=== PATIENT | female | born 1990 | race Caucasian/White ===

== ENCOUNTER 2019-02-03 00:20 | Outpatient (CLI) | payer OTHER, SELFPAY ==
[~2019-02-03] VITALS: Ht 142.2 cm; Wt 77.3 kg
[2019-02-03] MEDS ORDERED: PRENTAB9 PO (00:46)
[2019-02-03 00:49] VITALS: BP 111/52
[2019-02-03 01:53] LABS: BASO # 0.1 10^3/uL (0.0-0.2); BASO % 0.5 % (0.0-1.0); EOS # 0.3 10^3/uL (0.0-0.50); EOS % 1.6 % (0.0-3.0); HEMATOCRIT 32.5 % (36.0-47.0); LYMPH # 3.3 10^3/uL (1.5-6.5); LYMPH % 21.3 % (24.0-44.0); MEAN CORPUSCULAR HEMOGLOBIN 30.7 pg (27.0-33.0); MEAN CORPUSCULAR HGB CONC 33.8 g/dl (32.0-36.5); MEAN CORPUSCULAR VOLUME 90.8 fl (80.0-96.0); MONO # 0.7 10^3/uL (0.0-0.8); MONO % 4.7 % (0.0-5.0); NEUTROPHILS # 10.9 10^3/uL (1.8-7.7); NEUTROPHILS % 71.2 % (36.0-66.0); PLATELET COUNT, AUTOMATED 273 10^3/uL (150-450); RED BLOOD COUNT 3.58 10^6/uL (4.00-5.40); WHITE BLOOD COUNT 15.3 10^3/uL (4.0-10.0)
[2019-02-03 02:21] LABS: AMPHETAMINES URINE REFLEX NEGATIVE (NEGATIVE); BARBITURATES URINE REFLEX NEGATIVE (NEGATIVE); BENZODIAZEPINES URINE REFLEX NEGATIVE (NEGATIVE); CANNABINOIDS URINE REFLEX NEGATIVE (NEGATIVE); COCAINE METABOLITE URINE REFLE NEGATIVE (NEGATIVE); METHADONE URINE REFLEX NEGATIVE (NEGATIVE); OPIATES URINE REFLEX NEGATIVE (NEGATIVE); PHENCYCLIDINE URINE REFLEX NEGATIVE (NEGATIVE)
--- NOTE | 2019-02-03 02:54 | NUR ---
L&D Triage Note: S: 28yo with no PNC and unknown EDC presents with c/o contractions. Reports active movement. No vaginal bleeding or LOF PMHx: none PSHx: D&C x2 OB: , c/ IUGR Meds: PNV Allergy: meperodine Social Hx: no ETOH, drug or tobacco use during O: vss AF tracing appropriate for gestation gen: well appearing Chest: CTAB CVS: RRR abd: gravid, nttp cx: c/l/high panel obtained Anatomy u/s 25w6d A/P: 28yo at [id number] ,not active labor -poor care -reassuring status -provided with practice number and instructed to establish care Pallavi Lopez MD
--- NOTE | 2019-02-03 03:37 | REPVR ---
EXAM: US First Trimester, Transabdominal EXAM DATE/TIME: 02/03/2019 2:40 AM CLINICAL HISTORY: 28 years old, female; complicated by abdominal or pelvic pain; Generalized abdominal pain; Second trimester; Gestational age or lmp: 26wks; ; Patient HX: By lmp given the patient should be 36 wks , ; additional info: ? ? Gestation approx. 33 wks, non reactive nst, growth and bpp TECHNIQUE: Imaging protocol: Real-time transabdominal obstetrical ultrasound of the maternal pelvis and a first trimester , less than 14 weeks 0 days, with image documentation. COMPARISON: No relevant prior studies available. FINDINGS: GESTATION: Gestation: Single intrauterine fetus. Heart rate: heartbeat of 153 beats per minute. Presentation: Cephalic presentation. Placenta: The placenta is fundal. Amniotic fluid: MELANIE 10.6 cm. Abdomen: The intracranial structures, face, spine, stomach, kidneys, urinary bladder, cord, cord insertion, 4 chamber heart, LVOT and visualized extremities are normal. BIOMETRY: Estimated gestational age: The composite gestational age by ultrasound is 25 weeks 6 days. Estimated due date: The EDC is 05/13/2019. Estimated weight: The estimated weight is 842 grams. Biparietal diameter: The BPD measures 6.6 cm suggesting an age of 26 weeks 6 days. Head circumference: The head circumference measures 24.2 cm suggesting an age of 26 weeks 2 days. Abdominal circumference: The abdominal circumference measures 21.2 cm suggesting an age of 25 weeks 5 days. Femur length: The femur length measures 4.6 cm suggesting an age of 25 weeks 2 days. MATERNAL: Uterus: Unremarkable. Cervix: Closed cervix measuring 3.4 cm. Intraperitoneal: No intraperitoneal free fluid. IMPRESSION: Single live intrauterine fetus in cephalic presentation with a composite age of 25 weeks 6 days. EDC is 05/13/2019. Electronically signed by: Jose Lee On 02/03/2019 03:36:41 AM
[2019-02-03 14:21] LABS: HEPATITIS C VIRUS ABY INDEX < 0.0 INDEX (<0.8); HIV 1&2 SCREEN CENTAUR NEGATIVE (NEGATIVE); RUBELLA IgG QUALITATIVE IMMUNE (IMMUNE)
== END 2019-02-03 02:45 | disposition home or self-care (01) ==
LOC: EDBD 00:20 → M LDO 00:20
PROVIDERS: ATTEND Obstetrics & Gynecology
DX: O26.892 Other specified pregnancy related conditions, second trimester (principal); O47.02 False labor before 37 completed weeks of gestation, second trimester; Z3A.25 25 weeks gestation of pregnancy
CPT/HCPCS: 59025; 76811; 76819; 80307; 85025; 86762; 86780; 86803; 87340; 87389; G0378; G0463

== ENCOUNTER 2019-04-17 22:41 | Outpatient (CLI) | payer OTHER, SELFPAY ==
[~2019-04-17 22:41] MED LIST: PRENTAB9 PO
[2019-04-17 22:42] VITALS: BP 99/61
[2019-04-17] MEDS ORDERED: ACETAMINOPHEN 500 MG TAB PO ONE (23:00)
== END 2019-04-17 23:27 | disposition home or self-care (01) ==
LOC: M LDO 22:41
PROVIDERS: ATTEND Specialist
DX: O26.893 Other specified pregnancy related conditions, third trimester (principal); R10.30 Lower abdominal pain, unspecified; O47.03 False labor before 37 completed weeks of gestation, third trimester; Z3A.36 36 weeks gestation of pregnancy
CPT/HCPCS: 59025; G0378; G0463

== ENCOUNTER 2019-05-15 10:55 | Inpatient (IN) | payer OTHER, SELFPAY ==
[2019-05-15] VITALS (43 sets, daily range): BP systolic 98–188; BP diastolic 55–97
[~2019-05-15] VITALS: Ht 142.2 cm; Wt 76.0 kg
[2019-05-15] MEDS ORDERED: PENICILLIN G POTASSIUM IV 5 MU in D5W MINI-BAG PLUS 100 ML IV STA (11:27)
--- NOTE | 2019-05-15 11:56 | HPE ---
DATE OF ADMISSION: 05/15/2019 CHIEF COMPLAINT: Labor. HISTORY OF PRESENT ILLNESS: Carmen is a 28-year-old 4, para 1-0-2-1 at 40.2 weeks gestation by a second trimester ultrasound done on 02/03/2019 with an estimated date of delivery of 05/13/2019. She presents to labor and delivery complaining of contractions since 6:30 p.m. and rupture of membranes at 10:30 a.m. this morning, which was clear. Her contractions started at about 5 to 6 minutes and now have moved closer together about every 2 minutes. She is feeling baby move and denies any bleeding or other discharge. Her care is complicated by lack of care. She has no laboratories. An obstetrical ultrasound done on 02/03/2019 showed a single intrauterine gestation with normal anatomy and a fundal placenta. MELANIE at the time was 10.6 cm. PAST OBSTETRICAL HISTORY: 1. In 2005 she had a miscarriage at 7 weeks. 2. In 2015 she had a miscarriage and does not know what estimated gestational age that was at. 3. In June 2017 she gave to a male fetus at 39 weeks gestation via normal spontaneous vaginal delivery. Induction of labor for small for gestational age, her baby was 4 pounds 9 ounces. PAST MEDICAL HISTORY: 1. Asthma as a child. 2. No care. MEDICATIONS: vitamins. PAST SURGICAL HISTORY: Dilatation and curettage in 2015. ALLERGIES: DEMEROL. SOCIAL HISTORY: The patient is . She smokes five cigarettes per day. She denies any alcohol or drug use. PHYSICAL EXAMINATION: VITAL SIGNS: Temperature 98.0, pulse 87 and regular, respiratory rate 18 and unlabored, blood pressure 128/80. ABDOMEN: Gravid, Valentin's maneuver shows baby is vertex with an estimated weight of about 3500 grams. STERILE VAGINAL EXAM: 3 cm dilated, 75% effaced, -3 station, Nitrazine positive. MONITOR: 135 beats per minute, moderate variability, accelerations, no decelerations. Category 1 tracing. Tocometer: Contractions every 2 minutes. ASSESSMENT AND PLAN: This is a 28-year-old 4, P 1-0-2-1 at 40.2 weeks estimated gestational age in active labor. She has had no care. Her laboratories have been ordered. She is Group B streptococcus (GBS) unknown so we will give her penicillin. She does wish to have an epidural. status is reassuring. Anticipate spontaneous vaginal delivery. GME ATTESTATION GME ATTESTATION My faculty preceptor for this patient encounter was physically present during the encounter and was fully available. All aspects of the patient interview, examination, medical decision making process, and medical care plan development were reviewed and approved by the faculty preceptor. The faculty preceptor is aware and concurs with the plan as stated in the body of this note and will attest to such by his/her cosignature. RON
[2019-05-15 12:02] LABS: HEMATOCRIT 34.1 % (36.0-47.0); HEMOGLOBIN 11.6 g/dl (12.0-15.5); MEAN CORPUSCULAR HEMOGLOBIN 30.7 pg (27.0-33.0); MEAN CORPUSCULAR VOLUME 90.2 fl (80.0-96.0); PLATELET COUNT, AUTOMATED 322 10^3/uL (150-450); RED BLOOD COUNT 3.78 10^6/uL (4.00-5.40); WHITE BLOOD COUNT 17.6 10^3/uL (4.0-10.0)
[2019-05-15] MEDS ORDERED: LR 500 ML IV ONE (12:15)
[2019-05-15 12:28] LABS: ALT/SGPT 11 U/L (12-78); BILIRUBIN,TOTAL 0.2 MG/DL (0.2-1.0); CREATININE FOR GFR 0.54 MG/DL (0.55-1.30); GLOMERULAR FILTRATION RATE > 60.0 (>60); LDH LACTATE DEHYDROGENASE 165 U/L (84-246); URIC ACID 6.1 MG/DL (2.6-6.0)
--- NOTE | 2019-05-15 14:37 | IPNPDOC ---
Text Note Date of Service The patient was seen on 05/15/19. NOTE Subjective: Feeling contractions, not very uncomfortable, does want epidural, feeling baby move Objective: Vitals: stable Sterile vaginal exam: /-3, no change heart rate: 135 bpm, moderate variability, accelerations, no decelerations, category 1 tracing [place]: Contractions every 3-11 minutes Assessment/Plan: 28-year-old at 40.2 EGA in labor, no cervical change after 3.5 hours - status reassuring -Augmentation with Pitocin -Anticipate vaginal delivery VS,Fishbone, I+O VS, Fishbone, I+O Laboratory Tests 05/15/19 11:44 Red Blood Count 3.78 L, Mean Corpuscular Volume 90.2, Mean Corpuscular Hemoglobin 30.7, Mean Corpuscular Hemoglobin Concent 34.0, Red Cell Distribution Width 14.3, Aspartate Amino Transf (AST/SGOT) 15, Alanine Aminotransferase (ALT/SGPT) 11 L, Lactate Dehydrogenase 165, Total Bilirubin 0.2, Uric Acid 6.1 H Vital Signs Date Time Temp Pulse Resp B/P (MAP) Pulse Ox O2 Delivery O2 Flow Rate FiO2 05/15/19 12:46 85 18 131/72 (91) 05/15/19 11:06 98.0 GME ATTESTATION GME ATTESTATION My faculty preceptor for this patient encounter was physically present during the encounter and was fully available. All aspects of the patient interview, examination, medical decision making process, and medical care plan development were reviewed and approved by the faculty preceptor. The faculty preceptor is aware and concurs with the plan as stated in the body of this note and will attest to such by his/her cosignature. JOSE LUIS MARTIN DO May 15, 2019 14:37
[2019-05-15] MEDS ORDERED: LR 1,000 ML IV SCH (14:45)
[2019-05-15] MEDS ORDERED: OXYTOCIN DRIP 30 UNITS in APPROPRIATE DILUENT 1 EA IV SCH (14:45)
[2019-05-15 14:53] LABS: AMPHETAMINES URINE REFLEX NEGATIVE (NEGATIVE); BARBITURATES URINE REFLEX NEGATIVE (NEGATIVE); BENZODIAZEPINES URINE REFLEX NEGATIVE (NEGATIVE); CANNABINOIDS URINE REFLEX NEGATIVE (NEGATIVE); COCAINE METABOLITE URINE REFLE NEGATIVE (NEGATIVE); METHADONE URINE REFLEX NEGATIVE (NEGATIVE); OPIATES URINE REFLEX NEGATIVE (NEGATIVE); PHENCYCLIDINE URINE REFLEX NEGATIVE (NEGATIVE)
[2019-05-15] MEDS ORDERED: PENICILLIN G POTASSIUM IV 2.5 MU in APPROPRIATE DILUENT 1 EA IV SCH (15:30)
[2019-05-15] MEDS: PENICILLIN G POTASSIUM IV 2.5 MU in APPROPRIATE DILUENT 1 EA IV SCH ×2 (15:59→20:17)
[2019-05-15] MEDS ORDERED: FENTANYL 2MCG/ML ROPIVACAINE 0.2% IN 0.9% NACL 100ML IVBAG As Ordered ONE (16:00)
[2019-05-15 16:09] LABS: CHLAMYDIA DNA AMPLIFICATION POSITIVE (NEGATIVE); GC DNA AMPLIFICATION NEGATIVE (NEGATIVE)
[2019-05-15] MEDS ORDERED: AZITHROMYCIN 250 MG TAB PO ONE (16:45)
--- NOTE | 2019-05-15 16:47 | IPNPDOC ---
Text Note Date of Service The patient was seen on 05/15/19. NOTE Subjective: Patient is getting epidural right now Objective: heart rate: 135 bpm, moderate variability, axilla is no decelerations, category 1 tracing [place]: Contractions every 3-5 minutes Chlamydia trachomatis came back positive Assessment/plan: 28-year-old at 40.2 EGA, in labor -Chlamydia positive, will treat with azithromycin 2 g by mouth, will notify NICU - status reassuring -Patient more comfortable now status post epidural -Anticipate normal spontaneous vaginal delivery VS,Fishbone, I+O VS, Fishbone, I+O Laboratory Tests 05/15/19 11:44 Red Blood Count 3.78 L, Mean Corpuscular Volume 90.2, Mean Corpuscular Hemoglobin 30.7, Mean Corpuscular Hemoglobin Concent 34.0, Red Cell Distribution Width 14.3, Aspartate Amino Transf (AST/SGOT) 15, Alanine Aminotransferase (ALT/SGPT) 11 L, Lactate Dehydrogenase 165, Total Bilirubin 0.2, Uric Acid 6.1 H Vital Signs Date Time Temp Pulse Resp B/P (MAP) Pulse Ox O2 Delivery O2 Flow Rate FiO2 05/15/19 14:56 98.1 83 18 112/69 (83) GME ATTESTATION GME ATTESTATION My faculty preceptor for this patient encounter was physically present during the encounter and was fully available. All aspects of the patient interview, examination, medical decision making process, and medical care plan development were reviewed and approved by the faculty preceptor. The faculty preceptor is aware and concurs with the plan as stated in the body of this note and will attest to such by his/her cosignature. JOSE LUIS MARTIN DO May 15, 2019 16:47
[2019-05-15] MEDS ORDERED: EPIDURAL COMMENT XX SCH (17:00)
[2019-05-15] MEDS ORDERED: FENTANYL/ROPIVACAINE/NACL BAG 100 ML EPIDURAL SCH (17:00)
[2019-05-15] MEDS ORDERED: EPIDURAL/PCA KEYS XX PRN (17:00)
[2019-05-15] MEDS ORDERED: NALOXONE INJ 0.4 MG/1 ML VIAL (J2310) IV PRN (17:00)
[2019-05-15] MEDS ORDERED: REFRIGERATOR IV KEYS XX PRN (17:00)
[2019-05-15] MEDS ORDERED: ePHEDrine SULFATE 25 MG/5 ML(5MG/ML) SYRINGE IV PRN (17:00)
[2019-05-15] MEDS ORDERED: ONDANSETRON 4MG/2ML VIAL (J2405) IV PRN (17:00)
[2019-05-15] MEDS ORDERED: diphenhydrAMINE INJ 50MG/ML VIAL (J1200) IV PRN (17:00)
[2019-05-15] MEDS ORDERED: ACETAMINOPHEN TAB 650MG DOSE (2X325MG) PO PRN (18:30)
[2019-05-16] VITALS (15 sets, daily range): BP systolic 112–190; BP diastolic 57–71
[2019-05-16] MEDS: PENICILLIN G POTASSIUM IV 2.5 MU in APPROPRIATE DILUENT 1 EA IV SCH (01:49)
[2019-05-16] MEDS ORDERED: ACETAMINOPHEN 500 MG TAB PO PRN (03:00)
[2019-05-16] MEDS ORDERED: MOM 30ML SUSPENSION UDC PO PRN (03:00)
[2019-05-16] MEDS ORDERED: MEASLES,MUMPS,RUBELLA VACCINE INJ (MMR-II) (90707) SC SCH (03:00)
[2019-05-16] MEDS ORDERED: OXYTOCIN DRIP 30 UNITS in APPROPRIATE DILUENT 1 EA IV SCH (03:00)
[2019-05-16] MEDS ORDERED: METHYLERGONOVINE MALEATE 0.2 MG TAB PO PRN (03:00)
[2019-05-16] MEDS ORDERED: ANUSOL HC CREAM 30GM TOP PRN (03:00)
[2019-05-16] MEDS ORDERED: ACETAMINOPHEN TAB 650MG DOSE (2X325MG) PO PRN (03:00)
[2019-05-16] MEDS ORDERED: DOCUSATE SODIUM 100 MG CAP PO PRN (03:00)
[2019-05-16] MEDS ORDERED: DIBUCAINE 1% OINTMENT 30GM TOP PRN (03:00)
[2019-05-16] MEDS ORDERED: RHOGAM 300 MCG (1500 IU) INJ (J2790) IM SCH (03:00)
[2019-05-16] MEDS ORDERED: IBUPROFEN 600 MG TAB PO PRN (03:00)
[2019-05-16] MEDS: SLF 3 ML SYR IV SCH ×2 (06:00→14:41)
[2019-05-16] MEDS: PRENATAL VITAMINS CHEWABLE TABLET PO SCH (08:47)
[2019-05-16] MEDS: IBUPROFEN 800 MG TAB PO PRN (08:48)
[2019-05-16] MEDS ORDERED: SLF 3 ML SYR IV PRN (09:00)
[2019-05-16 09:33] LABS: RUBELLA IgG QUALITATIVE IMMUNE (IMMUNE)
[2019-05-16] MEDS: NICOTINE 21MG/24HR 1 EA TRANSDERMAL TD SCH (12:20)
--- NOTE | 2019-05-16 12:43 | DN ---
DATE: 05/16/2019 TIME OF : 0242 hours GENDER: Male. SCORES: 9 and 9. WEIGHT: 6 pounds 7 ounces or 2920 grams. LACERATION: Left labial. ANESTHESIA: Epidural. ESTIMATED BLOOD LOSS: 300 mL. COUNTS: Five laparotomy sponges accounted for prior to and after delivery, one sharp removed from the delivery field. DELIVERY NOTE On May 16, 2019 at 0242 hours, Ms. Oakes, a 28-year-old had a delivery of a live born male , scores 9 and 9, weight was 2920 grams or 6 pounds 7 ounces. Head was delivered OA over intact perineum followed by delivery of shoulders and corpus. The infant was handed to the mother with good cry. Cord was clamped times two and was cut by the father of baby under my direction. Placenta was then drained and delivered grossly intact. A premixed bag of 500 mL of normal saline with 30 units of Pitocin was bolused along with uterine massage until the uterus was firm. On reinspection, there was a left labial laceration, which was repaired with 3-0 Vicryl Rapide. On reinspection, cervix, vagina and perineum were grossly intact and hemostatic. Mother and baby recovering in stable condition.
[2019-05-17 05:26] VITALS: BP 105/58
[2019-05-17] MEDS: PRENATAL VITAMINS CHEWABLE TABLET PO SCH (08:53)
[2019-05-17] MEDS: NICOTINE 21MG/24HR 1 EA TRANSDERMAL TD SCH (08:54)
[2019-05-17] MEDS ORDERED: ADACEL/BOOSTRIX VACCINE (DIPHTH/PERTUSS/ACELL/TETANUS)0.5ML SYR (90715) IM ONE (09:00)
[2019-05-17] MEDS ORDERED: INFLUENZA QUADRIVALENT PF VACCINE 0.5ML SYRINGE (90686) IM ONE (09:00)
[2019-05-17] MEDS: IBUPROFEN 800 MG TAB PO PRN (09:03)
== END 2019-05-17 11:20 | disposition home or self-care (01) | DRG 560 ==
LOC: M LDO 10:55 → M LDI 11:16 → M OBS 05-16 08:40
PROVIDERS: ADMIT Obstetrics & Gynecology; ATTEND Obstetrics & Gynecology
PROC: 10E0XZZ Delivery of Products of Conception, External Approach (ICD-10-PCS; principal; 2019-05-16)
PROC: 0HQ9XZZ Repair Perineum Skin, External Approach (ICD-10-PCS; 2019-05-16)
DX: O48.0 Post-term pregnancy (principal); Z3A.40 40 weeks gestation of pregnancy; Z37.0 Single live birth; O99.334 Smoking (tobacco) complicating childbirth; F17.210 Nicotine dependence, cigarettes, uncomplicated; O98.32 Other infections with a predominantly sexual mode of transmission complicating childbirth; A74.89 Other chlamydial diseases; O70.0 First degree perineal laceration during delivery

== ENCOUNTER → 2020-07-30 | Outpatient (CLI) | payer OTHER, SELFPAY ==
[2020-07-30 13:49] LABS: HEMATOCRIT 40.5 % (36.0-47.0); MEAN CORPUSCULAR HGB CONC 32.1 g/dl (32.0-36.5); MEAN CORPUSCULAR VOLUME 90.4 fl (80.0-96.0); PLATELET COUNT, AUTOMATED 310 10^3/uL (150-450); RED BLOOD COUNT 4.48 10^6/uL (4.00-5.40); WHITE BLOOD COUNT 13.1 10^3/uL (4.0-10.0)
--- NOTE | 2020-07-30 14:04 | ECGEPIP ---
[facility] Test Date: 2020-07-30 Pat Name: ARNULFO GILBERT Department: Room: - Gender: Female [employer]inist: ASH : 1990 Requested By: Mariela Verma FPMHNP-BC Order Number: [id number] Reading MD: Linda Joseph Measurements Intervals [place] Rate: 64 P: 29 VT: 161 QRS: 6 QRSD: 83 T: 5 QT: 362 QTc: 374 Interpretive Statements SINUS RHYTHM WITH POSSIBLY INCREASED VAGAL TONE (HR SLOWING) PRWP NO PRIOR Electronically Signed on 07-30-2020 14:04:07 EST by Linda Joseph
[2020-07-30 14:34] LABS: HEMOGLOBIN A1c 5.4 %
[2020-07-30 14:46] LABS: ALBUMIN 3.4 GM/DL (3.2-5.2); ALT/SGPT 42 U/L (12-78); BILIRUBIN,TOTAL 0.1 MG/DL (0.2-1.0); BLOOD UREA NITROGEN 8 MG/DL (7-18); CALCIUM LEVEL 8.7 MG/DL (8.5-10.1); CARBON DIOXIDE LEVEL 26 MEQ/L (21-32); CHLORIDE LEVEL 110 MEQ/L (98-107); CHOLESTEROL LEVEL 197 MG/DL (<200); CHOLESTEROL RISK RATIO 6.566 (<5); CREATININE FOR GFR 0.57 MG/DL (0.55-1.30); FREE THYROXINE INDEX 2.8 % (1.3-4.8); GLOMERULAR FILTRATION RATE > 60.0 (>60); GLUCOSE, FASTING 79 MG/DL (70-100); HDL CHOLESTEROL 30 MG/DL (>40); LDL CHOLESTEROL 128 MG/DL (<100); NON-HDL-C 167 MG/DL; POTASSIUM SERUM 4.1 MEQ/L (3.5-5.1); SODIUM LEVEL 141 MEQ/L (136-145); T UPTAKE 30 % (30-39); THYROID STIMULATING HORMONE 0.989 uIU/ML (0.358-3.740); THYROXINE (T4) 9.2 UG/DL (4.5-12.0); TOTAL PROTEIN 6.6 GM/DL (6.4-8.2); TRIGLYCERIDES LEVEL 195 MG/DL (<150)
[2020-07-30 14:50] LABS: TOTAL 25(OH) VITAMIN D 9.9 NG/ML (30.0-100.0)
== END ==
LOC: M LAB 11:11
PROVIDERS: ATTEND Nurse Practitioner Psychiatric/Mental Health
DX: F33.9 Major depressive disorder, recurrent, unspecified (principal)

== ENCOUNTER 2020-08-04 16:22 | Emergency (ER) | payer OTHER ==
[~2020-08-04] VITALS: Ht 142.2 cm; Wt 83.9 kg
[2020-08-04] MEDS ORDERED: NS 1,000 ML IV ONE (17:30)
[2020-08-04] MEDS ORDERED: ONDANSETRON 4MG/2ML VIAL IV ONE (17:30)
[2020-08-04 18:23] LABS: BASO # 0.1 10^3/uL (0.0-0.2); BASO % 0.3 % (0.0-1.0); EOS # 0.1 10^3/uL (0.0-0.5); EOS % 0.5 % (0.0-3.0); HEMATOCRIT 42.9 % (36.0-47.0); HEMOGLOBIN 14.1 g/dl (12.0-15.5); LYMPH # 1.8 10^3/uL (1.5-5.0); LYMPH % 8.2 % (24.0-44.0); MEAN CORPUSCULAR HEMOGLOBIN 28.8 pg (27.0-33.0); MEAN CORPUSCULAR HGB CONC 32.9 g/dl (32.0-36.5); MEAN CORPUSCULAR VOLUME 87.7 fl (80.0-96.0); MONO # 0.5 10^3/uL (0.0-0.8); MONO % 2.4 % (0.0-5.0); NEUTROPHILS # 19.2 10^3/uL (1.5-8.5); NEUTROPHILS % 87.9 % (36.0-66.0); PLATELET COUNT, AUTOMATED 386 10^3/uL (150-450); RED BLOOD COUNT 4.89 10^6/uL (4.00-5.40); WHITE BLOOD COUNT 21.9 10^3/uL (4.0-10.0)
[2020-08-04 18:47] LABS: ALBUMIN 3.9 GM/DL (3.2-5.2); ALT/SGPT 41 U/L (12-78); AMYLASE 43 U/L (25-115); BILIRUBIN,DIRECT < 0.1 MG/DL (0.0-0.2); BILIRUBIN,TOTAL 0.4 MG/DL (0.2-1.0); BLOOD UREA NITROGEN 8 MG/DL (7-18); CARBON DIOXIDE LEVEL 21 MEQ/L (21-32); CHLORIDE LEVEL 110 MEQ/L (98-107); CREATININE FOR GFR 0.62 MG/DL (0.55-1.30); GLOMERULAR FILTRATION RATE > 60.0 (>60); GLUCOSE, FASTING 100 MG/DL (70-100); LIPASE 97 U/L (73-393); POTASSIUM SERUM 4.2 MEQ/L (3.5-5.1); SODIUM LEVEL 138 MEQ/L (136-145); TOTAL PROTEIN 7.7 GM/DL (6.4-8.2)
[2020-08-04 18:53] LABS: HCG, SERUM QUALITATIVE POSITIVE (NEGATIVE)
[2020-08-04 19:28] LABS: HCG, SERUM QUANTITATIVE 22459 MIU/ML
[2020-08-04 19:29] LABS: AMPHETAMINES LEVEL URINE NEGATIVE (NEGATIVE); BARBITURATES URINE NEGATIVE (NEGATIVE); BENZODIAZEPINES URINE NEGATIVE (NEGATIVE); CANNABINOIDS URINE POSITIVE (NEGATIVE); COCAINE METABOLITE URINE NEGATIVE (NEGATIVE); METHADONE URINE NEGATIVE (NEGATIVE); OPIATES URINE NEGATIVE (NEGATIVE); PHENCYCLIDINE URINE NEGATIVE (NEGATIVE)
--- NOTE | 2020-08-04 20:57 | REPVR ---
PROCEDURE INFORMATION: Exam: US First Trimester, Transabdominal Exam date and time: 08/04/2020 8:49 PM Age: 30 years old Clinical indication: Lmp or gestational age (in weeks): Unk; Antepartum complications; Other: Vomiting; ; Additional info: N/v, positive hcg TECHNIQUE: Imaging protocol: Real-time transabdominal obstetrical ultrasound of the maternal pelvis and a first trimester , less than 14 weeks 0 days, with image documentation. COMPARISON: No relevant prior studies available. FINDINGS: Gestation: Single gestational sac demonstrated within the uterine fundus. Single pole demonstrated within the gestational sac with a crown-rump length of 6.7 mm. Embryonic/ heart rate: heart rate is 108 bpm. Placenta: Unremarkable. No subchorionic bleed. Amniotic fluid: Amniotic fluid is normal for gestational age. BIOMETRY: Gestational age (AUA): Gestational age based on crown-rump length is 6 weeks 4 days in this patient with unknown menstrual dates. MATERNAL: Uterus: Unremarkable. Cervix: Unremarkable. Right adnexa: Unremarkable. Left adnexa: Unremarkable. Intraperitoneal space: No intraperitoneal free fluid. IMPRESSION: Gestational age based on crown-rump length is 6 weeks 4 days in this patient with unknown menstrual dates. heart rate is in the low range. No other abnormalities demonstrated. Continued interval follow-up is suggested as clinically directed. Electronically signed by: Joe Eagle On 08/04/2020 20:57:11 PM
[2020-08-04] MEDS ORDERED: METOCLOPRAMIDE INJ 10MG/2ML VIAL (J2765 PER 1) IV ONE (21:45)
[2020-08-04] MEDS ORDERED: REGL10TA6 PO (22:15)
[2020-08-04] MEDS ORDERED: KEFL500C17 PO (22:15)
[2020-08-04 22:46] VITALS: BP 120/69
== END 2020-08-04 23:00 | disposition home or self-care (01) ==
LOC: M ED 16:22
DX: O99.321 Drug use complicating pregnancy, first trimester (principal); F12.188 Cannabis abuse with other cannabis-induced disorder; O99.111 Other diseases of the blood and blood-forming organs and certain disorders involving the immune mechanism complicating pregnancy, first trimester; D72.829 Elevated white blood cell count, unspecified; O23.91 Unspecified genitourinary tract infection in pregnancy, first trimester; Z3A.01 Less than 8 weeks gestation of pregnancy
CPT/HCPCS: 76801; 80048; 80076; 80307; 81001; 82150; 83690; 84702; 84703; 85025; 96361; 96374; 96375; 99284; J2405; J2765

== ENCOUNTER 2021-03-02 02:29 | Emergency (ER) | payer OTHER ==
[~2021-03-02] VITALS: Ht 137.2 cm; Wt 80.0 kg
[~2021-03-02 02:29] MED LIST changes: +KEFL500C17 PO; +REGL10TA6 PO
[2021-03-02] MEDS ORDERED: ZOLO100T PO (02:53)
[2021-03-02] MEDS ORDERED: NS 1,000 ML IV ONE (03:05)
[2021-03-02] MEDS ORDERED: ONDANSETRON 4MG/2ML VIAL IV ONE (04:10)
[2021-03-02 04:32] LABS: BASO # 0.1 10^3/uL (0.0-0.2); BASO % 0.5 % (0.0-1.0); EOS % 0.1 % (0.0-3.0); HEMATOCRIT 48.7 % (36.0-47.0); HEMOGLOBIN 16.1 g/dl (12.0-15.5); LYMPH # 3.1 10^3/uL (1.5-5.0); LYMPH % 11.4 % (24.0-44.0); MEAN CORPUSCULAR HEMOGLOBIN 29.1 pg (27.0-33.0); MEAN CORPUSCULAR HGB CONC 33.1 g/dl (32.0-36.5); MEAN CORPUSCULAR VOLUME 88.1 fl (80.0-96.0); MONO # 0.9 10^3/uL (0.0-0.8); MONO % 3.2 % (2.0-8.0); NEUTROPHILS # 22.6 10^3/uL (1.5-8.5); NEUTROPHILS % 83.9 % (36.0-66.0); PLATELET COUNT, AUTOMATED 478 10^3/uL (150-450); RED BLOOD COUNT 5.53 10^6/uL (4.00-5.40); WHITE BLOOD COUNT 26.9 10^3/uL (4.0-10.0)
[2021-03-02 05:08] LABS: HCG, SERUM QUALITATIVE NEGATIVE (NEGATIVE)
[2021-03-02 05:10] LABS: ALBUMIN 4.4 GM/DL (3.2-5.2); ALT/SGPT 18 U/L (12-78); BILIRUBIN,DIRECT < 0.1 MG/DL (0.0-0.2); BILIRUBIN,TOTAL 0.4 MG/DL (0.2-1.0); BLOOD UREA NITROGEN 11 MG/DL (7-18); CALCIUM LEVEL 10.5 MG/DL (8.5-10.1); CARBON DIOXIDE LEVEL 21 MEQ/L (21-32); CHLORIDE LEVEL 105 MEQ/L (98-107); CREATININE FOR GFR 0.98 MG/DL (0.55-1.30); GLOMERULAR FILTRATION RATE > 60.0 (>60); GLUCOSE, FASTING 215 MG/DL (70-100); LIPASE 74 U/L (73-393); POTASSIUM SERUM 4.5 MEQ/L (3.5-5.1); SODIUM LEVEL 141 MEQ/L (136-145); TOTAL PROTEIN 8.9 GM/DL (6.4-8.2)
[2021-03-02] MEDS ORDERED: METOCLOPRAMIDE INJ 10MG/2ML VIAL (J2765 PER 1) IV ONE (05:40)
[2021-03-02] MEDS ORDERED: ISOVUE-370 76% 100ML VIAL As Ordered ONE (06:31)
[2021-03-02 06:36] LABS: AMPHETAMINES LEVEL URINE NEGATIVE (NEGATIVE); BARBITURATES URINE NEGATIVE (NEGATIVE); BENZODIAZEPINES URINE NEGATIVE (NEGATIVE); CANNABINOIDS URINE POSITIVE (NEGATIVE); COCAINE METABOLITE URINE NEGATIVE (NEGATIVE); METHADONE URINE NEGATIVE (NEGATIVE); OPIATES URINE NEGATIVE (NEGATIVE); PHENCYCLIDINE URINE NEGATIVE (NEGATIVE)
[2021-03-02 06:57] LABS: HEMOGLOBIN A1c 4.9 %
--- NOTE | 2021-03-02 08:06 | REPVR ---
PROCEDURE INFORMATION: Exam: CT Abdomen And Pelvis With Contrast Exam date and time: 03/02/2021 7:09 AM Age: 30 years old Clinical indication: Nausea and vomiting; Additional info: Intractable n/v TECHNIQUE: Imaging protocol: Computed tomography of the abdomen and pelvis with contrast. Radiation optimization: All CT scans at this facility use at least one of these dose optimization techniques: automated exposure control; mA and/or kV adjustment per patient size (includes targeted exams where dose is matched to clinical indication); or iterative reconstruction. Contrast material: ISOVUE 370; Contrast volume: 100 ml; Contrast route: INTRAVENOUS (IV); COMPARISON: No relevant prior studies available. FINDINGS: Diaphragm: There is moderate elevation of the right hemidiaphragm. Liver: There is a diffuse decrease in hepatic parenchymal density, consistent with fatty infiltration.The liver is mildly enlarged measuring 18.5 cm in length.There are no focal lesions present. Gallbladder and bile ducts: Normal. No calcified stones. No ductal dilation. Pancreas: Normal. No ductal dilation. Spleen: Normal. No splenomegaly. Adrenal glands: Normal. No mass. Kidneys and ureters: Normal. No hydronephrosis. Stomach and bowel: There is no evidence for intestinal obstruction.No evidence of acute abnormality in the abdomen. Appendix: No evidence of appendicitis. Intraperitoneal space: Unremarkable. No free air. No significant fluid collection. Vasculature: Unremarkable. No abdominal aortic aneurysm. Lymph nodes: Unremarkable. No enlarged lymph nodes. Urinary bladder: Unremarkable as visualized. Reproductive: 4.5 x 3.5 cm cyst is noted in the right ovary. Pelvic ultrasound may be considered for further evaluation. Bones/joints: Unremarkable. No acute fracture. Soft tissues: Unremarkable. IMPRESSION: 1. There is a diffuse decrease in hepatic parenchymal density, consistent with fatty infiltration.The liver is mildly enlarged measuring 18.5 cm in length.There are no focal lesions present. 2. There is moderate elevation of the right hemidiaphragm. 3. 4.5 x 3.5 cm cyst is noted in the right ovary. Pelvic ultrasound may be considered for further evaluation. 4. There is no evidence for intestinal obstruction.No evidence of acute abnormality in the abdomen. Electronically signed by: Bishop Andrade On 03/02/2021 08:06:40 AM
[2021-03-02] MEDS ORDERED: ZOFR4TAB16 PO (09:46)
[2021-03-02 09:48] VITALS: BP 123/77
== END 2021-03-02 09:50 | disposition home or self-care (01) ==
LOC: M ED 02:29
DX: R11.10 Vomiting, unspecified (principal); F12.10 Cannabis abuse, uncomplicated; D64.9 Anemia, unspecified; E55.9 Vitamin D deficiency, unspecified; F17.200 Nicotine dependence, unspecified, uncomplicated; Z88.8 Allergy status to other drugs, medicaments and biological substances
CPT/HCPCS: 74177; 80048; 80076; 80307; 81001; 83036; 83605; 83690; 84703; 85025; 87040; 87086; 93041; 96361; 96374; 96375; 99285; J2405; J2765; Q9967

== ENCOUNTER 2021-05-04 10:45 | Emergency (ER) | payer MEDICAID, OTHER, SELFPAY ==
[~2021-05-04] VITALS: Ht 137.2 cm; Wt 79.4 kg
[~2021-05-04 10:45] MED LIST changes: +ZOFR4TAB16 PO; +ZOLO100T PO
[2021-05-04] MEDS ORDERED: KETOROLAC 30 MG/ML 1ML VIAL IV ONE (16:20)
[2021-05-04] MEDS ORDERED: NS 1,000 ML IV ONE (16:20)
[2021-05-04] MEDS ORDERED: ONDANSETRON 4MG/2ML VIAL IV ONE (16:20)
[2021-05-04] MEDS ORDERED: GI COCKTAIL 50ML BTL(HYOSCYAMINE/MAALOX/LIDOCAINE VISCOUS)(1:3:1) PO ONE (16:30)
[2021-05-04] MEDS ORDERED: PANTOPRAZOLE 40MG VIAL (C9113 PER 1) IV ONE (16:30)
[2021-05-04 17:03] LABS: BASO # 0.1 10^3/uL (0.0-0.2); BASO % 0.4 % (0.0-1.0); HEMATOCRIT 47.1 % (36.0-47.0); HEMOGLOBIN 15.9 g/dl (12.0-15.5); LYMPH # 1.2 10^3/uL (1.5-5.0); LYMPH % 4.4 % (24.0-44.0); MEAN CORPUSCULAR HEMOGLOBIN 29.9 pg (27.0-33.0); MEAN CORPUSCULAR HGB CONC 33.8 g/dl (32.0-36.5); MEAN CORPUSCULAR VOLUME 88.7 fl (80.0-96.0); MONO # 0.7 10^3/uL (0.0-0.8); MONO % 2.6 % (2.0-8.0); NEUTROPHILS # 24.7 10^3/uL (1.5-8.5); NEUTROPHILS % 91.4 % (36.0-66.0); PLATELET COUNT, AUTOMATED 416 10^3/uL (150-450); RED BLOOD COUNT 5.31 10^6/uL (4.00-5.40)
--- NOTE | 2021-05-04 17:58 | REPVR ---
PROCEDURE INFORMATION: Exam: CT Abdomen And Pelvis Without Contrast Exam date and time: 05/04/2021 5:16 PM Age: 30 years old Clinical indication: Other: Left flank pain TECHNIQUE: Imaging protocol: Computed tomography of the abdomen and pelvis without contrast. Radiation optimization: All CT scans at this facility use at least one of these dose optimization techniques: automated exposure control; mA and/or kV adjustment per patient size (includes targeted exams where dose is matched to clinical indication); or iterative reconstruction. COMPARISON: CT ABD/PEL W/IV CONTRAST ONLY 03/02/2021 6:30 AM FINDINGS: Liver: Focal hypoattenuation of the hepatic left lobe medial segment is noted adjacent to the falciform ligament fissure, likely representing focal fatty infiltration. Gallbladder and bile ducts: Normal. No calcified stones. No ductal dilation. Pancreas: Normal. No ductal dilation. Spleen: Normal. No splenomegaly. Adrenal glands: Normal. No mass. Kidneys and ureters: Normal. No hydronephrosis. Stomach and bowel: Unremarkable. No obstruction. No mucosal thickening. Appendix: The vermiform appendix is normal. Intraperitoneal space: No free air. No significant fluid collection. Vasculature: Calcified phleboliths are present in the lower pelvis bilaterally. Lymph nodes: No enlarged lymph nodes. Urinary bladder: The urinary bladder is decompressed and difficult to assess. Reproductive: Bilateral ovarian follicles within the physiologic range. Bones/joints: Unremarkable. No acute fracture. Soft tissues: A tiny paraumbilical hernia containing only abdominal fat is noted. Other findings: Pancolonic luminal contraction limiting assessment for mild wall thickening. IMPRESSION: No acute findings. Electronically signed by: Tyler Arias On 05/04/2021 17:58:06 PM
[2021-05-04 18:26] LABS: HEMOGLOBIN A1c 5.1 %
[2021-05-04 19:00] LABS: ALBUMIN 4.2 GM/DL (3.2-5.2); ALT/SGPT 22 U/L (12-78); BILIRUBIN,DIRECT < 0.1 MG/DL (0.0-0.2); BILIRUBIN,TOTAL 0.6 MG/DL (0.2-1.0); BLOOD UREA NITROGEN 14 MG/DL (7-18); CARBON DIOXIDE LEVEL 22 MEQ/L (21-32); CHLORIDE LEVEL 104 MEQ/L (98-107); CREATININE FOR GFR 0.92 MG/DL (0.55-1.30); GLOMERULAR FILTRATION RATE > 60.0 (>60); GLUCOSE, FASTING 169 MG/DL (70-100); LIPASE 18 U/L (73-393); POTASSIUM SERUM 4.6 MEQ/L (3.5-5.1); SODIUM LEVEL 133 MEQ/L (136-145); TOTAL PROTEIN 9.1 GM/DL (6.4-8.2)
[2021-05-04] MEDS ORDERED: ONDA4TAB6 PO (19:21)
[2021-05-04 19:42] VITALS: BP 149/74
== END 2021-05-04 19:44 | disposition home or self-care (01) ==
LOC: M ED 10:45
DX: R10.9 Unspecified abdominal pain (principal); R11.2 Nausea with vomiting, unspecified; J45.909 Unspecified asthma, uncomplicated; Z88.8 Allergy status to other drugs, medicaments and biological substances
CPT/HCPCS: 36415; 74176; 80048; 80076; 81001; 83036; 83690; 84702; 85025; 96361; 96374; 96375; 99284; C9113; J1885; J2405

== ENCOUNTER 2021-05-05 17:51 | Emergency (ER) | payer SELFPAY ==
[~2021-05-05] VITALS: Ht 142.2 cm; Wt 80.0 kg
[~2021-05-05 17:51] MED LIST changes: +ONDA4TAB6 PO
[2021-05-05 17:52] VITALS: BP 159/76
[2021-05-05] MEDS ORDERED: NS 1,000 ML IV ONE (23:10)
[2021-05-05] MEDS ORDERED: HALOPERIDOL 5MG/ML VIAL (J1630 PER 1) IV ONE (23:10)
[2021-05-06 00:10] LABS: BASO # 0.1 10^3/uL (0.0-0.2); BASO % 0.4 % (0.0-1.0); EOS % 0.1 % (0.0-3.0); HEMATOCRIT 41.1 % (36.0-47.0); LYMPH # 2.5 10^3/uL (1.5-5.0); LYMPH % 15.3 % (24.0-44.0); MEAN CORPUSCULAR HEMOGLOBIN 29.5 pg (27.0-33.0); MEAN CORPUSCULAR HGB CONC 33.6 g/dl (32.0-36.5); MEAN CORPUSCULAR VOLUME 87.8 fl (80.0-96.0); MONO # 0.8 10^3/uL (0.0-0.8); MONO % 4.6 % (2.0-8.0); NEUTROPHILS # 12.8 10^3/uL (1.5-8.5); NEUTROPHILS % 79.1 % (36.0-66.0); PLATELET COUNT, AUTOMATED 402 10^3/uL (150-450); RED BLOOD COUNT 4.68 10^6/uL (4.00-5.40); WHITE BLOOD COUNT 16.2 10^3/uL (4.0-10.0)
[2021-05-06 00:15] LABS: ALBUMIN 4.1 GM/DL (3.2-5.2); ALT/SGPT 22 U/L (12-78); BILIRUBIN,DIRECT < 0.1 MG/DL (0.0-0.2); BILIRUBIN,TOTAL 0.4 MG/DL (0.2-1.0); LIPASE 71 U/L (73-393); TOTAL PROTEIN 7.9 GM/DL (6.4-8.2)
[2021-05-06 00:34] LABS: HEMOGLOBIN 13.8 g/dl (12.0-15.5)
== END 2021-05-06 01:38 | disposition left against medical advice (07) ==
LOC: M ED 17:51
DX: R11.10 Vomiting, unspecified (principal); J45.909 Unspecified asthma, uncomplicated; F41.9 Anxiety disorder, unspecified; F32.9 Major depressive disorder, single episode, unspecified; F17.200 Nicotine dependence, unspecified, uncomplicated; F12.10 Cannabis abuse, uncomplicated; Z53.20 Procedure and treatment not carried out because of patient's decision for unspecified reasons
CPT/HCPCS: 80047; 80076; 83690; 85025; 96374; 99283; J1630

== ENCOUNTER 2021-10-22 07:07 | Emergency (ER) | payer OTHER, SELFPAY ==
[~2021-10-22] VITALS: Ht 137.2 cm; Wt 71.7 kg
[2021-10-22] MEDS ORDERED: NS 1,000 ML IV ONE ×2 (07:45→09:20)
[2021-10-22] MEDS ORDERED: ONDANSETRON 4MG/2ML VIAL IV ONE (07:45)
[2021-10-22 08:13] LABS: BASO # 0.2 10^3/uL (0.0-0.2); BASO % 0.6 % (0.0-1.0); EOS # 0.1 10^3/uL (0.0-0.5); EOS % 0.4 % (0.0-3.0); HEMATOCRIT 47.1 % (36.0-47.0); HEMOGLOBIN 16.6 g/dl (12.0-15.5); LYMPH # 2.9 10^3/uL (1.5-5.0); LYMPH % 11.3 % (24.0-44.0); MEAN CORPUSCULAR HEMOGLOBIN 29.9 pg (27.0-33.0); MEAN CORPUSCULAR HGB CONC 35.2 g/dl (32.0-36.5); MEAN CORPUSCULAR VOLUME 84.7 fl (80.0-96.0); MONO # 1.2 10^3/uL (0.0-0.8); MONO % 4.8 % (2.0-8.0); NEUTROPHILS # 21.3 10^3/uL (1.5-8.5); NEUTROPHILS % 82.5 % (36.0-66.0); PLATELET COUNT, AUTOMATED 409 10^3/uL (150-450); RED BLOOD COUNT 5.56 10^6/uL (4.00-5.40); WHITE BLOOD COUNT 25.8 10^3/uL (4.0-10.0)
[2021-10-22] MEDS ORDERED: CAPSAICIN 0.025% CR 60 GM TOP ONE (08:35)
[2021-10-22 08:46] LABS: HCG, SERUM QUALITATIVE NEGATIVE (NEGATIVE)
[2021-10-22 08:49] LABS: ACETAMINOPHEN LEVEL < 2.0 UG/ML (10.0-30.0); ALBUMIN 4.7 GM/DL (3.2-5.2); ALT/SGPT 24 U/L (12-78); AMYLASE 44 U/L (25-115); BILIRUBIN,DIRECT 0.2 MG/DL (0.0-0.2); BILIRUBIN,TOTAL 0.6 MG/DL (0.2-1.0); BLOOD UREA NITROGEN 16 MG/DL (7-18); CALCIUM LEVEL 10.3 MG/DL (8.5-10.1); CARBON DIOXIDE LEVEL 19 MEQ/L (21-32); CHLORIDE LEVEL 103 MEQ/L (98-107); CREATININE FOR GFR 1.01 MG/DL (0.55-1.30); ETHYL ALCOHOL (ETHANOL) < 0.003 % (0.000-0.010); GLOMERULAR FILTRATION RATE > 60.0 (>60); GLUCOSE, FASTING 154 MG/DL (70-100); LIPASE 96 U/L (73-393); POTASSIUM SERUM 3.7 MEQ/L (3.5-5.1); SALICYLATE LEVEL 6.7 MG/DL (5.0-30.0); SODIUM LEVEL 137 MEQ/L (136-145); TOTAL PROTEIN 8.7 GM/DL (6.4-8.2)
[2021-10-22] MEDS ORDERED: METOCLOPRAMIDE INJ 10MG/2ML VIAL (J2765 PER 1) IV ONE (09:25)
[2021-10-22 09:26] LABS: RSV AMPLIFICATION NEGATIVE (NEGATIVE)
[2021-10-22] MEDS ORDERED: ISOVUE-370 76% 100ML VIAL As Ordered ONE (09:49)
[2021-10-22 10:32] LABS: AMPHETAMINES LEVEL URINE NEGATIVE (NEGATIVE); BARBITURATES URINE NEGATIVE (NEGATIVE); BENZODIAZEPINES URINE NEGATIVE (NEGATIVE); CANNABINOIDS URINE POSITIVE (NEGATIVE); COCAINE METABOLITE URINE NEGATIVE (NEGATIVE); METHADONE URINE NEGATIVE (NEGATIVE); OPIATES URINE NEGATIVE (NEGATIVE); PHENCYCLIDINE URINE NEGATIVE (NEGATIVE)
[2021-10-22 11:00] VITALS: BP 159/87
[2021-10-22] MEDS ORDERED: ONDA4TAB6 PO (11:08)
[2021-10-22] MEDS ORDERED: OMEP40CA4 PO (11:10)
== END 2021-10-22 11:48 | disposition home or self-care (01) ==
LOC: M ED 07:07
DX: F12.188 Cannabis abuse with other cannabis-induced disorder (principal); D72.828 Other elevated white blood cell count; R11.10 Vomiting, unspecified; R94.31 Abnormal electrocardiogram [ECG] [EKG]; F41.8 Other specified anxiety disorders; F32.A Depression, unspecified; F17.200 Nicotine dependence, unspecified, uncomplicated; F11.10 Opioid abuse, uncomplicated; Z88.6 Allergy status to analgesic agent
CPT/HCPCS: 36415; 74177; 80048; 80076; 80143; 80307; 82077; 82150; 83605; 83690; 84703; 85025; 87040; 87631; 93005; 93041; 96361; 96374; 96375; 99285; J2405; J2765; Q9967